=== PATIENT | male | born 1965 | race Two or more races ===

== ENCOUNTER 2025-08-15 10:30 | Emergency (ER) | payer MEDICAID, SELFPAY ==
--- NOTE | 2025-08-15 | XR_ITS ---
Examination: MRI lumbar spine, without intravenous contrast. MRI lumbar spine, with intravenous contrast. Exam date and time: Low back pain with bilateral leg weakness beginning 5 days ago Technique: Multiple axial, sagittal and coronal images of the lumbar spine have been obtained with the Siemens high-resolution 1.5 Reta MRI scanner. Images obtained included T2 weighted fat suppressed sagittal sections, TR 3500, TE 46, T2 weighted coronal fat suppressed images, TR 3050, TE 84, T2-weighted transverse fat suppressed images, TR 30-60, TE 63, proton density transverse images, TR 4720, TE 46, and T1 weighted coronal images, TR 560, TE 13. Axial, sagittal and coronal images are obtained post intravenous injection 14 cc gadolinium. Findings: Satisfactory alignment lumbar vertebral bodies Advanced disc narrowing L2-L3, L3-L4, L4-L5 There is enhancement involving contiguous endplates L2-L3, L3-L4, L4-L5 L5-S1 no disc protrusion L4-L5 4 mm central lumbar disc bulge L3-L4 10 mm left foraminal disc bulge and moderate left L3 ganglionic compression IMPRESSION: Osteomyelitis discitis at L2-L3, L3-L4, L4-L5
[2025-08-15 11:19] VITALS: BP 158/90; PULSE 66; RESP 18; TEMP 36.9; O2SAT 98; BMI 27.4
--- NOTE | 2025-08-15 11:41 | EDNOTE_ITS ---
ED General RME/HPI General Chief complaint: General Adult/Misc Complain Stated complaint: LEG PAIN Time Seen by Provider: 08/15/25 11:16 Arrival date/time: 60-year-old male patient came in for evaluation regarding for the bilateral hip pain. Patient has been having bilateral hip pain, getting worse for the last 5 days, pain going down to lower leg. Patient is denying any low back pain, no fever no vomiting, Denies any trauma denies any fall. Patient denies any bladder incontinence. Denies any bowel incontinence. Was seen by PCP and was referred here for further evaluation. Related Data Previous Rx's ?Medication ?Instructions ?Recorded ciprofloxacin HCl 500 mg tablet 500 mg PO Q12H #14 tab s 12/01/18 (Cipro) ibuprofen 600 mg tablet 600 mg PO Q8H PRN fever or p ain 12/01/18 #30 tabs naproxen 500 mg tablet (Naprosyn) 500 mg PO BID #30 ta bs 12/31/21 ibuprofen 600 mg tablet 600 mg PO BID PRN pain #14 t abs 06/17/22 hydrocodone 5 mg-acetaminophen 325 1 tab PO BID PRN pa in #10 tabs 05/24/23 mg tablet ibuprofen 800 mg tablet 800 mg PO TID PRN pain #30 t abs 05/24/23 acetaminophen 300 mg-codeine 30 mg 1 tab PO TID PRN pa in #21 tabs 10/20/23 tablet acetaminophen 300 mg-codeine 30 mg 1 tab PO TID PRN pa in #20 tabs 08/15/25 tablet ciprofloxacin HCl 500 mg tablet 500 mg PO BID #60 tabs 08/15/25 Allergies Allergy/AdvReac Type Severity Reaction Status Date / Time No Known Allergies Allergy Verified 06/17/22 19:26 Review of Systems Review of Systems Narrative Review of Systems: Review of system reviewed and within normal limits except mentioned in HPI ED Exam Narrative Physical exam: VITAL SIGNS: Reviewed. GENERAL APPEARANCE: Alert and interactive, follows commands, no acute distress, HEAD AND FACE: Non-traumatic. ENT: PERRL, pink conjunctivitis, eyelid no trauma, Mucous membrane moist. NECK: Supple, nontender, no nuchal rigidity. CHEST: No tenderness, no crepitus, no paradoxical movement, no retractions. LUNGS: Clear, well ventilated, symmetric, no rales, no wheezing, no ronchi, no stridor, good breath sounds bilaterally. HEART: Regular rate, regular rhythm, no murmur, no gallops. ABDOMEN: Soft, positive bowel sounds, nondistended, no guarding, nontender, no rebound, no masses, RECTAL: Deferred. GENITAL: Deferred. NEUROLOGICAL: Gross motor function intact sensory function intact, Appropriate for age. MUSCULOSKELETAL: low back nontender, full range of motion. EXTREMITIES: Nontender, full range of motion. Positive straight leg raising test bilateral SKIN: Color pink, dry, no rash, no lacerations, no abrasions, no contusions. LYMPHATICS: Deferred. Course Quality Measures none Orders Category Date Time Status MRI Screening NOW Care 08/15/25 13:[address] lumbar spine wo con Stat Exams 08/15/25 11:42 Completed MR lumbar spine wo/w con Stat Exams 08/15/25 Completed XR hip BI w pelvis 2V Stat Exams 08/15/25 11:42 Completed CBC [CBC] Stat Lab 08/15/25 14:35 Completed CMP [Comprehensive Metabolic Panel] Stat Lab 08/15/25 14:35 Completed Ciprofloxacin HCl [Ciprofloxacin] Med 08/15/25 20:08 Discontinued 500 mg PO X1 ONE Ketorolac Inj [Toradol Inj] Med 08/15/25 11:43 Discontinued 30 mg IM X1 ONE Piper/Tazo 3.375 gm Premix [Zosyn] Med 08/15/25 19:51 Discontinued 3.375 gm in 50 ml IV X1 Vancomycin Inj 1,000 mg Med 08/15/25 19:51 Discontinued Sodium Chloride 0.9% 250 ml [Ns] 250 ml IV X1 Vital Signs Vital signs: Vital Signs Temperature 98.5 F 08/15/25 11:19 Pulse Rate 66 08/15/25 11:19 Respiratory Rate 18 08/15/25 11:19 Blood Pressure 158/90 H 08/15/25 11:19 Pulse Oximetry (%) 98 08/15/25 11:19 Oxygen Delivery Method Room Air 08/15/25 11:19 Discharge Plan Plan Patient Disposition: HOME (Self Care) Discharge Disposition comment: stable Prescriptions/Referrals Prescriptions/Med Rec: New acetaminophen-codeine 300-30 mg tablet 1 tab PO TID PRN (Reason: pain) Qty: 20 0RF ciprofloxacin HCl 500 mg tablet 500 mg PO BID Qty: 60 0RF No Action ciprofloxacin HCl [Cipro] 500 mg tablet 500 mg PO Q12H Qty: 14 0RF Rx Instructions: administer dose at least 2 hrs before/6 hrs after dairy products, calcium, zinc, and/or iron-containing products ibuprofen 600 mg tablet 600 mg PO Q8H PRN (Reason: fever or pain) Qty: 30 0RF naproxen [Naprosyn] 500 mg tablet 500 mg PO BID Qty: 30 0RF ibuprofen 800 mg tablet 800 mg PO TID PRN (Reason: pain) Qty: 30 0RF hydrocodone-acetaminophen 5-325 mg tablet 1 tab PO BID MDD 10 PRN (Reason: pain) Qty: 10 0RF ibuprofen 600 mg tablet 600 mg PO BID PRN (Reason: pain) Qty: 14 0RF acetaminophen-codeine 300-30 mg tablet 1 tab PO TID PRN (Reason: pain) Qty: 21 0RF Referrals: Raul Don MD [Primary Care Provider, Family Practice] - In 1 week Problem List Clinical Impression: Traumatic arthritis of hip, Chronic osteomyelitis of lumbar spine Patient/Caregiver Discharge Instructions Discharge Activity: activity as tolerated Education Materials: Osteomyelitis Dc Additional Instructions: Thank you for the opportunity for serving you today. You are stable for discharged . You are advised to: Follow-up with your PCP in 1 to 2 days Return to ED for worsening of symptoms Increase oral fluids Take medication as prescribed Ask your PCP to refer you to spine surgeon regarding your multiple level lumbar discitis/chronic osteomyelitis As your PCP to refer you to orthopedic surgeon regarding your severe traumatic arthritis hip Print Language: Barbadian Stand Alone Forms: [facility] Award Info., Patient Portal Info Letter PA/KEMAL Supervising Physician KIMBERLY/KEMAL Supervising Physician: MD Lucy MDM Narrative MDM hospital course (for use when minimal MDM required): 60-year-old male patient came in for evaluation regarding for the bilateral hip pain. Patient has been having bilateral hip pain, getting worse for the last 5 days, pain going down to lower leg. Patient is denying any low back pain, no fever no vomiting, Denies any trauma denies any fall. Patient denies any bladder incontinence. Denies any bowel incontinence. Was seen by PCP and was referred here for further evaluation. MRI of the lumbar spine showed osteomyelitis/discitis multiple level lumbar spine, which is also present during the lumbar spine MRI that was done 2 years ago. Currently patient is not showing any fever no lumbar pain no leukocytosis on CBC. I called Dr. Cantu radiologist, who told me that patient is probably having dormant/chronic osteomyelitis/discitis of the lumbar spine. Clinically patient is not having any acute infection of the lumbar spine. Patient is not having any pain. Plan of care discussed with the patient including starting him on oral antibiotic for 4 weeks and follow-up with PCP for referral to spine surgeon and orthopedic surgeon. Patient agrees with the plan patient stable for discharge home Medication Administration(s) Medication Administration History Discontinued Medications Ciprofloxacin (Ciprofloxacin Hcl 250 Mg Tablet) 500 mg PO X1 ONE Stop: 08/15/25 20:09 Last Admin: 08/15/25 20:16 Dose: 500 mg Documented By: ORLY Vancomycin HCl 1,000 mg/ (Sodium Chloride) 250 mls @ 150 mls/hr IV X1 ONE Stop: 08/15/25 21:30 Last Admin: 08/15/25 20:01 Dose: Not Given Documented By: ORLY Non-Admin Reason: Cancelled by Provider Piperacillin/Tazobactam/Dextrose (Zosyn) 3.375 gm in 50 mls @ 100 mls/hr IV X1 ONE; Protocol Stop: 08/15/25 20:20 Last Admin: 08/15/25 20:00 Dose: Not Given Documented By: ORLY Non-Admin Reason: Cancelled by Provider Ketorolac Tromethamine (Ketorolac Inj 30 Mg/Ml Vial) 30 mg IM X1 ONE Stop: 08/15/25 11:44 Last Admin: 08/15/25 13:19 Dose: 30 mg Documented By: PACO Diagnosis Differential Diagnosis ED Complaint MDM: Hip pain, sciatica, chronic discitis/osteomyelitis lumbar spine multiple le Diagnoses ruled out and/or further discussions: Traumatic arthritis of the hip, sciatica, chronic discitis or myelitis lumbar spine multiple level
--- NOTE | 2025-08-15 11:42 | XR_ITS ---
Examination: Bilateral hips, AP pelvis, 5 views Technique: AP, lateral views both hips, AP pelvis, 5 views Exam date and time: August 15, 2025, 1142 hours INDICATIONS: Left hip pain beginning 2 weeks ago FINDINGS: Severe left hip osteoarthritis Chronic flattening of the left femoral head Moderate narrowing right hip joint No fracture IMPRESSION: Severe left hip osteoarthritis
--- NOTE | 2025-08-15 11:42 | XR_ITS ---
Examination: CT lumbar spine, without contrast. 2-D sagittal reconstructions. 2-D coronal reconstructions. 3-D reconstructions. Date and time of exam: August 15, 2025, 1236 hours INDICATIONS: Onset lower back pain beginning 1 month ago. CTDI: vol (mGy): 18.5 DLP: (mGycm): 626 Technique: Multiple 1.25 mm axial sections of the lumbar spine without intravenous contrast have been obtained. 2-D sagittal and coronal reconstructions have been obtained. 3-D reconstructions have been obtained. Low dose protocols were performed. One or more of the following dose reduction techniques were used; automated exposure control, adjustment of the mA and/or KV according to patient size, use of iterative reconstruction technique. Findings: Severe osteopenia Chronic osteoporotic compressions L5, L4, lesser extent L3 Advanced degenerative disc disease [id number] Spondylolysis L4-L5 Cortical erosions L2-L3, L3-L4, L4-L5 L5-S1 no disc protrusion L4-L5 severe acquired spinal stenosis, axial image 80, 8 mm central lumbar disc bulge, facet arthropathy and thickening of ligamentum flavum with severe bilateral L4 ganglionic compression L3-L4 no disc protrusion L2-L3 no disc protrusion IMPRESSION: Recommend MRI lumbar spine follow-up pre and postcontrast to confirm discitis osteomyelitis L2-L3, L3-L4, L4-L5 levels L4-L5 severe acquired spinal stenosis as above
[2025-08-15] MEDS: KETOROLAC INJ 30 MG/ML VIAL IM (13:19)
[2025-08-15 14:11] VITALS: BP 144/83; PULSE 71; RESP 18; TEMP 37; O2SAT 95
[2025-08-15 14:52] LABS: Basophils # (Auto) 0.1 Thou/mm3 (0.0-0.2); Basophils % (Auto) 1 % (0-2.5); Eosinophils # (Auto) 0.2 Thou/mm3 (0.0-0.5); Eosinophils % (Auto) 2 % (0-10); Hematocrit 40.0 % (41.0-53.0); Hemoglobin 12.9 g/dL (13.5-16.0); Immature Granulocytes Auto 0.16 Thou/mm3 (0.00-0.00); Lymphocytes # (Auto) 2.6 Thou/mm3 (1.0-4.8); Lymphocytes % (Auto) 28 % (10-50); Mean Corpuscular HGB Conc 32.3 g/dl (31.0-37.0); Mean Corpuscular Hemoglobin 27.3 pg (25.0-35.0); Mean Corpuscular Volume 85 fL (80-100); Monocytes # (Auto) 0.8 Thou/mm3 (0.0-0.8); Monocytes % (Auto) 9 % (0-12); Neutrophils # (Auto) 5.4 Thou/mm3 (1.8-7.7); Neutrophils % (Auto) 59 % (37-80); Nucleated Red Blood Cell # 0.00 Thou/mm3 (0.00-0.00); Nucleated Red Blood Cell % 0 /100 WBC (0); Platelet Count 367 Thou/mm3 (140-440); RDW Standard Deviation 48.4 fL (35.1-43.9); Red Blood Count 4.72 Miln/mm3 (4.50-5.90); White Blood Count 9.2 Thou/mm3 (3.8-10.6)
[2025-08-15 15:11] LABS: Alanine Aminotransferase 23 U/L (10-49); Albumin, Serum 4.8 gm/dL (3.4-4.8); Albumin/Globulin Ratio 1.7 (1.2-2.2); Alkaline Phosphatase 110 U/L (46-116); Anion Gap 9 (7-16); Aspartate Amino Transferase 28 U/L (0-34); BUN/Creatinine Ratio 18 Ratio (12-20); Bilirubin,Total 0.7 mg/dL (0.3-1.2); Blood Urea Nitrogen 14 mg/dL (9-23); Calcium 10.0 mg/dL (8.3-10.6); Calcium (Corrected) 10.0 mg/dL (8.5-10.1); Carbon Dioxide 26.6 mMol/L (20.0-31.0); Chloride 104 mMol/L (98-107); Creatinine (Component) 0.8 mg/dL (0.6-1.3); Estimated Creatinine Clearance 88.5 mL/min (>60); Globulin 2.8 gm/dL (2.3-3.5); Glucose 101 mg/dL (74-106); Osmolality,Calculated 279 (275-295); Potassium 3.6 mMol/L (3.4-5.1); Sodium 140 mMol/L (136-145); Total Protein 7.6 gm/dL (5.7-8.2); eGFR > 60 See Note
[2025-08-15 16:29] VITALS: BP 115/73; PULSE 61; RESP 19; TEMP 36.9; O2SAT 98
[2025-08-15 18:44] VITALS: BP 168/94; PULSE 97; RESP 17; TEMP 36.6; O2SAT 98
[2025-08-15] MEDS: CIPROFLOXACIN HCL 250 MG TABLET 500 MG PO (20:16)
[2025-08-15 20:23] VITALS: RESP 18; O2SAT 98
== END 2025-08-15 20:25 | disposition home or self-care (01) ==
PROVIDERS: Nurse Practitioner Family; Emergency Provider Emergency Medicine; PCP Family Medicine
DX: M12.552 Traumatic arthropathy, left hip (principal); M46.26 Osteomyelitis of vertebra, lumbar region; M25.551 Pain in right hip; T14.90XS Injury, unspecified, sequela; X58.XXXS Exposure to other specified factors, sequela
CPT/HCPCS: 36415; 72131; 72158; 73521; 80053; 83605; 84145; 85025; 85652; 86140; 87040; 96372; 99284; A9577; J1885; A9270